=== PATIENT | male | born 1970 | race African-American/Black ===

== ENCOUNTER 2021-02-11 07:23 | Day surgery (SDC) | payer OTHER ==
[2021-02-11] MEDS ORDERED: propofoL 50 ML ONE (07:26)
[2021-02-11] MEDS ORDERED: fentaNYL 100 MCG/2 ML SDV ONE (07:31)
--- NOTE | 2021-02-11 08:06 | PCM.PREANE ---
Preanesthetic Assessment - Anesthesia/Transfusion/Family Hx Anesthesia History: No Prior Anesthesia Family History of Anesthesia Reaction: No Transfusion History: No Prior Transfusion(s) - Review of Systems General: No Symptoms Pulmonary: No Symptoms Cardiovascular: No Symptoms Gastrointestinal: No Symptoms Neurological: No Symptoms Other: Reports: None - Physical Assessment NPO Status Date: 02/11/21 NPO Status Time: 00:00 Vital Signs: Last Vital Signs Temp 97.3 F 02/11/21 07:21 Pulse 69 02/11/21 07:21 Resp 15 02/11/21 07:21 BP 157/96 H 02/11/21 07:21 Pulse Ox 98 02/11/21 07:21 Height: 5 ft 9 in Weight: 215 lb ASA Class: 2 Mental Status: Alert & Oriented x3 Airway Class: Mallampati = 2 Dentition: Reports: Normal Dentition Thyro-Mental Finger Breadths: 3 Mouth Opening Finger Breadths: 3 ROM/Head Extension: Full Lungs: Clear to Auscultation, Normal Respiratory Effort Cardiovascular: Regular Rate, Regular Rhythm - Allergies Allergies/Adverse Reactions: Allergies Allergy/AdvReac Type Severity Reaction Status Date / Time No Known Allergies Allergy Verified 02/08/21 08:28 - Acknowledgements Anesthesia Type Planned: General Anesthesia Pt an Appropriate Candidate for the Planned Anesthesia: Yes Alternatives and Risks of Anesthesia Discussed w Pt/Guardian: Yes Pt/Guardian Understands and Agrees with Anesthesia Plan: Yes PreAnesthesia Questionnaire - Past Health History Medical/Surgical History: Denies Medical/Surgical History Cardiovascular History: Reports: Hypertension Genitourinary History: Reports: Renal Calculus Musculoskeletal History: Reports: Fracture Other Musculoskeletal History: hx fx wrist Endocrine/Metabolic History: Reports: Obesity/BMI 30+ - Infectious Disease History Infectious Disease History: Reports: SARS Other Infectious Disease History: covid positive in December 28, 2020 - Past Surgical History Head Surgeries/Procedures: Reports: None - SUBSTANCE USE Tobacco Use Status *Q: Never Tobacco User - HOME MEDS Home Medications: Home Meds Lisinopril/Hydrochlorothiazide [Lisinopril-Hctz 20-12.5 mg Tab] 1 tab PO BID 02/08/21 [History] Tadalafil [Cialis] 20 mg PO ASDIRECTED PRN 02/08/21 [History] Terazosin HCl [Terazosin] 5 mg PO BEDTIME 02/08/21 [History] - CURRENT (IN HOUSE) MEDS Current Meds: Current Medications Lactated Ringer's (Ringers, Lactated) 1,000 mls @ 125 mls/hr IV ASDIRECTED ASHLEY Discontinued Medications Fentanyl (Fentanyl 100 Mcg/2 Ml Sdv) Confirm Administered Dose 100 mcg .ROUTE .STK-MED ONE Stop: 02/11/21 07:32 Propofol (Diprivan 50 Ml) Confirm Administered Dose 50 mls @ as directed .ROUTE .STK-MED ONE Stop: 02/11/21 07:27 Lidocaine HCl (Lidocaine 1% 5 Ml Sdv) Confirm Administered Dose 5 ml .ROUTE .STK-MED ONE Stop: 02/11/21 07:32
--- NOTE | 2021-02-11 09:15 | PCM.OPNOTE ---
- General Post-Op/Procedure Note Date of Surgery/Procedure: 02/11/21 Operative Procedure(s): Colonoscopy Findings: Normal colon dictation number [id number] Pre Op Diagnosis: Screening Post-Op Diagnosis: Normal colonoscopy Anesthesia Technique: GIANNI Primary Surgeon: Sal Mohr Pathology: none Complications: None Condition: Good
--- NOTE | 2021-02-11 09:34 | PCM48HPAN ---
Post Anesthesia Note - EVALUATION WITHIN 48HRS OF ANESTHETIC Vital Signs in Normal Range: Yes Patient Participated in Evaluation: Yes Respiratory Function Stable: Yes Airway Patent: Yes Cardiovascular Function Stable: Yes Hydration Status Stable: Yes Pain Control Satisfactory: Yes Nausea and Vomiting Control Satisfactory: Yes Mental Status Recovered: Yes Vital Signs: Last Vital Signs Temp 97.2 F 02/11/21 09:15 Pulse 65 02/11/21 09:30 Resp 12 02/11/21 09:30 BP 117/81 02/11/21 09:30 Pulse Ox 96 02/11/21 09:30
--- NOTE | 2021-02-11 09:34 | PCM.POSTAN ---
POST ANESTHESIA ASSESSMENT - MENTAL STATUS Mental Status: Alert, Oriented - VITAL SIGNS Vital Signs: Last Vital Signs Temp 97.2 F 02/11/21 09:15 Pulse 65 02/11/21 09:30 Resp 12 02/11/21 09:30 BP 117/81 02/11/21 09:30 Pulse Ox 96 02/11/21 09:30 - RESPIRATORY Respiratory Status: Respiratory Rate WNL, Airway Patent, O2 Saturation Stable - CARDIOVASCULAR CV Status: Pulse Rate WNL, Blood Pressure Stable - GASTROINTESTINAL GI Status: No Symptoms - POST OP HYDRATION Hydration Status: Adequate & Stable
[2021-02-11] MEDS ORDERED: Lactated Ringers 1,000 ML IV SCH (10:45)
--- NOTE | 2021-02-11 14:18 | OR ---
SURGEON: ELIAZAR RUDOLPH MD DATE OF PROCEDURE: 02/11/2021 PREOPERATIVE DIAGNOSIS: Screening colonoscopy. POSTOPERATIVE DIAGNOSIS: Normal colonoscopy. PROCEDURE PERFORMED: Colonoscopy. PRIMARY SURGEON: Eliazar Rudolph MD ANESTHESIA: With Anesthesiology. EXTENT OF THE COLONOSCOPY: To the cecum. BOWEL PREP: Very good. LIMITATIONS: None. REASON FOR PROCEDURE: Patient is a pleasant 51-year-old gentleman. He has never had a colonoscopy before. He denies any blood in the stool. Denies any family history of colon cancer. The patient says he did have COVID a couple months ago and ever since then he has had off and on loose stools. He says this seems to be improving. PROCEDURE IN DETAIL: Physical examination was performed. The major risks and benefits associated with the procedure were explained to the patient in detail. The patient verbalized understanding and agreement with the same. The patient was then connected to appropriate monitoring device and IV started. EKG, pulse, pulse oximetry, blood pressure, and capnography were monitored throughout the entire procedure. Continuous oxygen and sedation were provided by the anesthesiologist. The patient was placed in left lateral decubitus position. Sedation was began. After adequate sedation was achieved, a digital rectal exam was performed. No rectal masses or polyps were felt. Now, a well-lubricated Olympus colonoscope was inserted into the rectum and advanced under direct visualization to the level of the cecum. The cecum was identified by both visual and anatomic landmarks. Photographs were taken of the cecal cap. The terminal ileum was also intubated. The scope was then slowly withdrawn in somewhat circular fashion looking at the color, texture, anatomy, and integrity of mucosa from the cecum to the anal canal. The patient did have a little bit of light liquid stool which was suctioned and irrigated out for a good look at the mucosa. No polyps or lesions were seen. The scope was retroflexed in the rectum. He did have a little bit of hyperplastic papillae of the hemorrhoids. The scope was then completely removed and the procedure was terminated. ENDOSCOPIC DIAGNOSIS: Normal colonoscopy. RECOMMENDATIONS: Followup colonoscopy in 10 years, sooner if he develops signs and symptoms such as change in bowel habits or blood in the stool. JACKIE / DANIE /[id number]
== END 2021-02-11 10:00 | disposition home or self-care (01) ==
LOC: MW.SDS 07:23
PROVIDERS: ATTEND Surgery
DX: Z12.11 Encounter for screening for malignant neoplasm of colon (principal); E66.9 Obesity, unspecified; Z79.899 Other long term (current) drug therapy; Z68.31 Body mass index [BMI] 31.0-31.9, adult
CPT/HCPCS: 45378; J2704; J3010; J7120; 00812

== ENCOUNTER 2021-02-19 15:36 | Emergency (ER) | payer OTHER ==
--- NOTE | 2021-02-19 16:18 | EDM.PDOC ---
ED HPI GENERAL MEDICAL PROBLEM - General Chief Complaint: Lower Extremity Injury/Pain Stated Complaint: RIGHT FOOT SWOLLEN Time Seen by Provider: 02/19/21 15:43 Source of Information: Reports: Patient History Limitations: Reports: No Limitations - History of Present Illness INITIAL COMMENTS - FREE TEXT/NARRATIVE: HISTORY AND PHYSICAL: History of present illness: Patient is a 51-year-old male with a history of hypertension who presents to the emergency department for complaints of right foot pain and swelling that started last Sunday. The patient states that he has no injury and that he has good fitting shoes. The patient states that he has not done any stressful walking or climbing. The patient has never had this happen before. The patient has just been taking [id number] Motrin or Tylenol. Patient denies any fever, chills, headache, change in vision, syncope or near syncope. Denies any chest pain, back pain, shortness of breath or cough. Denies any abdominal pain, nausea, vomiting, diarrhea, constipation or dysuria. Has not noted any blood in urine or stool. Patient has been eating and drinking appropriately. Review of systems: As per history of present illness and below otherwise all systems reviewed and negative. Past medical history: As per history of present illness and as reviewed below otherwise noncontributory. Surgical history: As per history of present illness and as reviewed below otherwise noncontributory. Social history: See social history for further information Family history: As per history of present illness and as reviewed below otherwise noncontributory. Physical exam: General: Well developed and well nourished. Alert and orientated x 3. Nontoxic in appearance and in no acute distress. Vital signs are stable and have been reviewed by me. Nursing notes were reviewed. HEENT: Atraumatic, normocephalic, pupils equal and reactive bilaterally, negative for conjunctival pallor or scleral icterus, mucous membranes moist, TMs normal bilaterally, throat clear, neck supple, nontender, trachea midline. No drooling or trismus noted. No meningeal signs. No hot potato voice noted. Lungs: Clear to auscultation bilaterally. No wheezes, rales, or rhonchi. Chest nontender. Normal work of breathing, no accessory muscles used. Heart: S1S2, regular rate and rhythm without overt murmur, gallops, or rubs. No JVD. No peripheral edema Abdomen: Soft, nondistended, nontender. Normoactive bowel sounds. Negative for masses or costovertebral tenderness. Skin: Intact, warm, dry. No lesions or rashes noted. Hematologic: No petechiae or purpra. Mucosa appropriate color and normal nail bed color and refill. Extremities: MTP joint swollen and tender to palpation. Moves all other extremities per self without difficulty or deficits, negative for cords or calf pain. Neurovascular unremarkable. Neuro: Awake, alert, oriented. Cranial nerves II through XII unremarkable. Cerebellum unremarkable. Motor and sensory unremarkable throughout. Exam nonfocal. Psychiatric: Mood and affect are appropriate. Normal thought process. Answering questions appropriately. Notes: *This patient was seen and evaluated during the 2019 SARS-CoV-2 novel coronavirus pandemic period. Community viral transmission is ongoing at time of this encounter and the emergency department is operating under pandemic response procedures. As stated above the patient is a 51-year-old male who presents to the emergency room with complaints of swelling and pain of his right MTP joint that started on Sunday. The patient is on lisinopril and recently had his dose increased. This could be a side effect. I will obtain a foot x-ray. If the foot x-ray is normal I will treat the patient with prednisone and Tylenol. The patient is agreeable with this plan. Right foot x-ray IMPRESSION: Mild soft tissue swelling. No obvious bony abnormality. Ordered prednisone 40 and acetaminophen for the patient. I have prescribed prednisone 40 daily for 5 days. I have instructed the patient not to take any kind of NSAIDs while on prednisone as this could cause GI bleed. I also to the patient that he could take a Pepcid if the prednisone increases GI irritation. I advised the patient to follow-up with his primary care or governor assembler [facility]. I did discuss with the patient that the definitive diagnosis of gout is an aspiration of the joint. This is not done in the emergency department. Patient is agreeable with the discharge plan. I have talked with the patient about today's findings, in addition to providing specific details for plan of care. Reassessment at the time of disposition demonstrates that the patient is in no acute distress. The patient is stable for discharge, counseling was provided and we discussed in great detail signs and symptoms that would prompt them to return to the Emergency Department. Medication, follow up and supportive care measures were reviewed and discussed. Voices understanding and is agreeable to plan of care. Denies any further questions or concerns at this time. Diagnostics: Right foot x-ray Therapeutics: Prednisone 40 mg acetaminophen 650 mg Prescription: Prednisone 40 mg p.o. for 5 days Impression: Gout Plan: 1. You were evaluated today on an emergent basis. Your complaints of right foot pain was evaluated and found to be gout. Your x-ray just showed mild soft tissue swelling. No obvious bony abnormality. This could be a side effect from your lisinopril. I have started you on prednisone 40 mg. He will take this daily for 5 days. Do not take any Advil or NSAIDs with this as it could cause GI bleeding. If you do have any GI upset you can take a Pepcid [id number]. You need to follow-up with the governor assembler hydraulic or your primary care provider for definitive care of this. As we talked about aspiration of the joint to be sent out is the only definitive diagnosis for gout. But I will treat you clinically for gout. 2. You can alternate Tylenol and ibuprofen as needed for pain and fever manag ement. 3. We encourage you to follow up with your primary care provider and/or recommended specialist in the next few days for re-evaluation and further care/management. 4. If your symptoms should worsen, new symptoms develop or any of the signs and symptoms we discussed should arise please return to the emergency room or call 911 (if needed). Definitive disposition and diagnosis as appropriate pending reevaluation and review of above. Right Feet Pain Score (Numeric/FACES): 9 - Related Data Allergies Allergy/AdvReac Type Severity Reaction Status Date / Time No Known Allergies Allergy Verified 02/19/21 16:01 Home Meds: Home Meds Lisinopril/Hydrochlorothiazide [Lisinopril-Hctz 20-12.5 mg Tab] 1 tab PO BID 02/08/21 [History] Tadalafil [Cialis] 20 mg PO ASDIRECTED PRN 02/08/21 [History] Terazosin HCl [Terazosin] 5 mg PO BEDTIME 02/08/21 [History] predniSONE [Prednisone] 40 mg PO DAILY 5 Days #10 tablet 02/19/21 [Rx] Indomethacin 50 mg PO TID 5 Days #15 capsule 02/23/21 [Rx] cephALEXin [Keflex] 500 mg PO Q8H 10 Days #30 cap 02/23/21 [Rx] Past Medical History - Past Health History Medical/Surgical History: Denies Medical/Surgical History Cardiovascular History: Reports: Hypertension Genitourinary History: Reports: Renal Calculus Musculoskeletal History: Reports: Fracture Other Musculoskeletal History: hx fx wrist Endocrine/Metabolic History: Reports: Obesity/BMI 30+ - Infectious Disease History Infectious Disease History: Reports: SARS Other Infectious Disease History: covid positive in December 28, 2020 - Past Surgical History Head Surgeries/Procedures: Reports: None Social & Family History - Tobacco Use Second Hand Smoke Exposure: No - Caffeine Use Caffeine Use: Reports: None - Recreational Drug Use Recreational Drug Use: No Review of Systems - Review of Systems Review Of Systems: Comprehensive ROS is negative, except as noted in HPI. ED EXAM, GENERAL - Physical Exam Exam: See Below (See dictation) Course - Vital Signs Last Recorded V/S: Last Vital Signs Temp 97.3 F 02/19/21 15:58 Pulse 89 02/19/21 15:58 Resp 20 02/19/21 15:58 BP 143/85 H 02/19/21 15:58 Pulse Ox 98 02/19/21 15:58 - Orders/Labs/Meds Meds: Medications Discontinued Medications Generic Name Dose Route Start Last Admin Trade Name Ines PRN Reason Stop Dose Admin Acetaminophen 650 mg 02/19/21 16:48 02/19/21 16:55 Acetaminophen 325 Mg Tab PO 02/19/21 16:49 650 mg NOW ONE Administration Prednisone 40 mg 02/19/21 16:47 02/19/21 16:55 Prednisone 20 Mg Tab PO 02/19/21 16:48 40 mg ONETIME ONE Administration Departure - Departure Time of Disposition: 17:01 Disposition: Home, Self-Care 01 Condition: Good Clinical Impression: Gout Qualifiers: Gout site: foot Gout etiology: unspecified cause Chronicity: acute Laterality: right Qualified Code(s): M10.9 - Gout, unspecified - Discharge Information *PRESCRIPTION DRUG MONITORING PROGRAM REVIEWED*: Not Applicable *COPY OF PRESCRIPTION DRUG MONITORING REPORT IN PATIENT CINTHIA: Not Applicable Prescriptions: predniSONE [Prednisone] 40 mg PO DAILY 5 Days #10 tablet Instructions: Gout Referrals: PCP,None [Primary Care Provider] - Forms: ED Department Discharge Additional Instructions: The following information is given to patients seen in the emergency department who are being discharged to home. This information is to outline your options for follow-up care. We provide all patients seen in our emergency department with a follow-up referral. The need for follow-up, as well as the timing and circumstances, are variable depending upon the specifics of your emergency department visit. If you don't have a primary care physician on staff, we will provide you with a referral. We always advise you to contact your personal physician following an emergency department visit to inform them of the circumstance of the visit and for follow-up with them and/or the need for any referrals to a consulting specialist. The emergency department will also refer you to a specialist when appropriate. This referral assures that you have the opportunity for follow-up care with a specialist. All of these measure are taken in an effort to provide you with optimal care, which includes your follow-up. Under all circumstances we always encourage you to contact your private physician who remains a resource for coordinating your care. When calling for follow-up care, please make the office aware that this follow-up is from your recent emergency room visit. If for any reason you are refused follow-up, please contact the [facility] Emergency Department at and asked to speak to the emergency department charge nurse. [facility] [address] [place] [address] [place] [address] Plan: 1. You were evaluated today on an emergent basis. Your complaints of right foot pain was evaluated and found to be gout. Your x-ray just showed mild soft tissue swelling. No obvious bony abnormality. This could be a side effect from your lisinopril. I have started you on prednisone 40 mg. He will take this daily for 5 days. Do not take any Advil or NSAIDs with this as it could cause GI bleeding. If you do have any GI upset you can take a Pepcid [id number]. You need to follow-up with the governor assembler hydraulic or your primary care provider for definitive care of this. As we talked about aspiration of the joint to be sent out is the only definitive diagnosis for gout. But I will treat you clinically for gout. 2. You can alternate Tylenol and ibuprofen as needed for pain and fever management. 3. We encourage you to follow up with your primary care provider and/or recommended specialist in the next few days for re-evaluation and further care/management. Sepsis Event Note (ED) - Evaluation Sepsis Screening Result: No Definite Risk
[2021-02-19] MEDS ORDERED: predniSONE 20 MG Tab PO ONE (16:47)
[2021-02-19] MEDS ORDERED: Acetaminophen 325 MG Tab PO ONE (16:48)
--- NOTE | 2021-02-19 16:59 | CR ---
INDICATION: Right foot swelling. No trauma. TECHNIQUE: Two views of the right foot. COMPARISON: None. FINDINGS: Mild generalized soft tissue swelling. No fracture, periosteal reaction, joint space narrowing or erosive change. IMPRESSION: Mild soft tissue swelling. No obvious bony abnormality. Dictated by Uriel Campos MD @ 02/19/2021 4:58:22 PM (Electronically Signed)
== END 2021-02-19 17:19 | disposition home or self-care (01) ==
LOC: MW.ED 15:36
DX: M10.9 Gout, unspecified (principal); I10 Essential (primary) hypertension; E66.9 Obesity, unspecified; Z68.31 Body mass index [BMI] 31.0-31.9, adult; Z79.899 Other long term (current) drug therapy
CPT/HCPCS: 73620; 99283; A9270

== ENCOUNTER 2021-02-23 13:55 | Emergency (ER) | payer OTHER ==
--- NOTE | 2021-02-23 16:13 | EDM.PDOC ---
ED HPI GENERAL MEDICAL PROBLEM - General Chief Complaint: Lower Extremity Injury/Pain Stated Complaint: POSSIBLE BLOOD CLOT IN RT FOOT Time Seen by Provider: 02/23/21 15:56 Source of Information: Reports: Patient History Limitations: Reports: No Limitations - History of Present Illness INITIAL COMMENTS - FREE TEXT/NARRATIVE: HISTORY AND PHYSICAL: History of present illness: Patient is a 51-year-old male who presents emergency room today with concern of right toe swelling/possible gout that has not improved with prednisone. Patient states that on , he began having right sided toe swelling/pain/redness. Patient states that he was told that his probable gout and was sent home with prednisone. Patient states that he has been taking this since without improvement of his symptoms. Patient denies any trauma or injury to the affected toe. Patient states that he followed up with his primary care provider at the [facility] and had uric acid testing which was normal according to patient. Patient states that he has had this happen 1 other time to his toe but states that it went away without intervention. Patient was seen and evaluated in the emergency room on 02/19/2021. Patient denies fever, chills, chest pain, shortness of breath, or cough. Denies headache, neck stiff ness, change in vision, syncope, or near syncope. Denies nausea, vomiting, abdominal pain, diarrhea, constipation, or dysuria. Has not noted any blood in urine or stool. Patient has been eating and drinking appropriately. Review of systems: As per history of present illness and below otherwise all systems reviewed and negative. Past medical history: As per history of present illness and as reviewed below otherwise noncontributory. Surgical history: As per history of present illness and as reviewed below otherwise noncontributory. Social history: See social history for further information Family history: As per history of present illness and as reviewed below otherwise noncontributory. Physical exam: General: Patient is alert, oriented, and in no acute distress. Patient sitting comfortably on exam table. Vitals stable and reviewed by me. HEENT: Atraumatic, normocephalic, pupils equal and reactive bilaterally, negative for conjunctival pallor or scleral icterus, mucous membranes moist, neck supple, nontender, trachea midline. No drooling or trismus noted. No m eningeal signs. No hot potato voice noted. Lungs: Clear to auscultation, breath sounds equal bilaterally, chest nontender. Heart: S1S2, regular rate and rhythm without overt murmur Abdomen: Soft, nondistended, nontender. Negative for masses or hepatosplenomegaly. Negative for costovertebral tenderness. Pelvis: Stable nontender. Genitourinary: Deferred. Rectal: Deferred. Skin: Intact, warm, dry. No lesions or rashes noted. Extremities: Patient does have mild to moderate edema/erythema overlying the right first digit MTP and PIP joint with significant pain with range of motion of these joints. Patient does have full range of motion of complete bilateral lower extremities without deficit. No felon or paronychia noted of the affected toe. Dorsalis pedis and posterior tibial pulses are grossly intact with capillary refill less than 2 seconds. All compartments soft of the right lower extremity. Otherwise, atraumatic, negative for cords or calf pain. Neurovascular unremarkable. Neuro: Awake, alert, oriented. Cranial nerves II through XII unremarkable. Cerebellum unremarkable. Motor and sensory unremarkable throughout. Exam nonfocal. Notes: On chart review from 02/19/2021, patient did have imaging of his right foot which showed mild soft tissue swelling with no obvious bony abnormality. Patient was discharged home with prednisone 40 mg and Tylenol for pain for 5 days. Despite taking this, patient continues to have no improvement of his symptoms today. Upon arrival to the ED, patient is vitally stable and well-appearing on exam. Patient does have MTP joint edema/erythema and PIP joint swelling of the right foot first digit that is tender and otherwise neurovascularly intact. This does resemble clinical gout. However, cannot rule out cellulitis. At this time, will obtain lab work, do not need to repeat x-ray as this has already been obtained and negative, and will reassess patient. Mild derangements of CBC and CMP unremarkable with white blood cell count within normal limits. Upon reevaluation of patient, he remains vitally stable and comfortable throughout stay in ED. Since patient is not having any benefit from prednisone, discuss stopping this medication and starting indomethacin for presumed gout. Given that and not completely presumed gout versus cellulitis, will also prescribe Keflex at this time with referral to podiatry for further follow-up and evaluation. Strict return precautions thoroughly discussed with patient. Discussed importance for follow-up with underwriting consultant and his primary care provider. Voices understanding and is agreeable to plan of care. Denies any further questions or concerns at this time. Diagnostics: CBC, CMP Therapeutics: None Prescription: Indomethacin, Keflex Impression: Right toe edema, possible gout vs cellulitis Plan: 1. Take medication as prescribed. Do not take any additional NSAID medication with indomethacin such as ibuprofen, naproxen, Aleve, or aspirin as discussed. You can also take Tylenol as directed for pain and discomfort. Stop Prednisone as discussed. 2. Follow-up with a underwriting consultant and your primary care provider as discussed. The number has been provided above for you to call and establish an appointment time. 3. Return to the ED as needed and as discussed. Definitive disposition and diagnosis as appropriate pending reevaluation and review of above. Right Foot Pain Score (Numeric/FACES): 10 - Related Data Allergies Allergy/AdvReac Type Severity Reaction Status Date / Time No Known Allergies Allergy Verified 02/19/21 16:01 Home Meds: Home Meds Lisinopril/Hydrochlorothiazide [Lisinopril-Hctz 20-12.5 mg Tab] 1 tab PO BID 02/08/21 [History] Tadalafil [Cialis] 20 mg PO ASDIRECTED PRN 02/08/21 [History] Terazosin HCl [Terazosin] 5 mg PO BEDTIME 02/08/21 [History] predniSONE [Prednisone] 40 mg PO DAILY 5 Days #10 tablet 02/19/21 [Rx] Indomethacin 50 mg PO TID 5 Days #15 capsule 02/23/21 [Rx] cephALEXin [Keflex] 500 mg PO Q8H 10 Days #30 cap 02/23/21 [Rx] Past Medical History - Past Health History Medical/Surgical History: Denies Medical/Surgical History HEENT History: Reports: None Cardiovascular History: Reports: None, Hypertension Respiratory History: Reports: None Gastrointestinal History: Reports: None Genitourinary History: Reports: None, Renal Calculus Musculoskeletal History: Reports: Fracture Other Musculoskeletal History: hx fx wrist Neurological History: Reports: None Psychiatric History: Reports: None Endocrine/Metabolic History: Reports: None, Obesity/BMI 30+ Hematologic History: Reports: None Immunologic History: Reports: None Oncologic (Cancer) History: Reports: None - Infectious Disease History Infectious Disease History: Reports: SARS Other Infectious Disease History: covid positive in December 28, 2020 - Past Surgical History Head Surgeries/Procedures: Reports: None HEENT Surgical History: Reports: None Cardiovascular Surgical History: Reports: None Male Surgical History: Reports: None Endocrine Surgical History: Reports: None Neurological Surgical History: Reports: None Dermatological Surgical History: Reports: None Social & Family History - Family History Family Medical History: No Pertinent Family History - Tobacco Use Tobacco Use Status *Q: Never Tobacco User Second Hand Smoke Exposure: No - Caffeine Use Caffeine Use: Reports: None - Recreational Drug Use Recreational Drug Use: No Review of Systems - Review of Systems Review Of Systems: Comprehensive ROS is negative, except as noted in HPI. ED EXAM, GENERAL - Physical Exam Exam: See Below (See dictation) Course - Vital Signs Last Recorded V/S: Last Vital Signs Temp 96 F L 02/23/21 15:41 Pulse 61 02/23/21 15:41 Resp 15 02/23/21 15:41 BP 132/81 02/23/21 15:41 Pulse Ox 99 02/23/21 15:41 - Orders/Labs/Meds Labs: Laboratory Tests 02/23/21 02/23/21 Range/Units 16:20 16:20 WBC 8.84 (4.0-11.0) K/uL RBC 4.85 (4.50-5.90) M/uL Hgb 12.7 L (13.0-17.0) g/dL Hct 38.3 (38.0-50.0) % MCV 79.0 L (80.0-98.0) fL MCH 26.2 L (27.0-32.0) pg MCHC 33.2 (31.0-37.0) g/dL RDW Std Deviation 45.9 (28.0-62.0) fl RDW Coeff of Olga 16 H (11.0-15.0) % Plt Count 373 (150-400) K/uL MPV 8.80 (7.40-12.00) fL Neut % (Auto) 56.6 (48.0-80.0) % Lymph % (Auto) 34.7 (16.0-40.0) % Gregory % (Auto) 6.7 (0.0-15.0) % Eos % (Auto) 1.9 (0.0-7.0) % Baso % (Auto) 0.1 (0.0-1.5) % Neut # (Auto) 5.0 (1.4-5.7) K/uL Lymph # (Auto) 3.1 H (0.6-2.4) K/uL Gregory # (Auto) 0.6 (0.0-0.8) K/uL Eos # (Auto) 0.2 (0.0-0.7) K/uL Baso # (Auto) 0.0 (0.0-0.1) K/uL Nucleated RBC % 0.0 /100WBC Nucleated RBCs # 0 K/uL Sodium 140 (136-148) mmol/L Potassium 4.3 (3.5-5.1) mmol/L Chloride 101 (98-107) mmol/L Carbon Dioxide 32.6 H (21.0-32.0) mmol/L BUN 13 (7.0-18.0) mg/dL Creatinine 1.1 (0.8-1.3) mg/dL Est Cr Clr Drug Dosing 80.34 mL/min Estimated GFR (MDRD) > 60.0 ml/min Glucose 101 (74-106) mg/dL Calcium 8.7 (8.5-10.1) mg/dL Total Bilirubin 0.4 (0.2-1.0) mg/dL AST 12 L (15-37) IU/L ALT 18 (14-63) IU/L Alkaline Phosphatase 46 (46-116) U/L Total Protein 7.2 (6.4-8.2) g/dL Albumin 3.2 L (3.4-5.0) g/dL Globulin 4.0 (2.6-4.0) g/dL Albumin/Globulin Ratio 0.8 L (0.9-1.6) Departure - Departure Time of Disposition: 17:14 Disposition: Home, Self-Care 01 Clinical Impression: Edema of toe - Discharge Information Prescriptions: Indomethacin 50 mg PO TID 5 Days #15 capsule cephALEXin [Keflex] 500 mg PO Q8H 10 Days #30 cap Instructions: Edema, [id number] Referrals: Higinio Perez [employer] [Primary Care Provider] - Forms: ED Department Discharge Additional Instructions: The following information is given to patients seen in the emergency department who are being discharged to home. This information is to outline your options for follow-up care. We provide all patients seen in our emergency department with a follow-up referral. The need for follow-up, as well as the timing and circumstances, are variable depending upon the specifics of your emergency department visit. If you don't have a primary care physician on staff, we will provide you with a referral. We always advise you to contact your personal physician following an emergency department visit to inform them of the circumstance of the visit and for follow-up with them and/or the need for any referrals to a consulting specialist. The emergency department will also refer you to a specialist when appropriate. This referral assures that you have the opportunity for follow-up care with a specialist. All of these measure are taken in an effort to provide you with optimal care, which includes your follow-up. Under all circumstances we always encourage you to contact your private physician who remains a resource for coordinating your care. When calling for follow-up care, please make the office aware that this follow-up is from your recent emergency room visit. If for any reason you are refused follow-up, please contact the [facility] Emergency Department at and asked to speak to the emergency department charge nurse. [facility] [address] [place] [id number] [address] [facility], Dr. Dixon, Podiatry [address] [address] 1. Take medication as prescribed. Do not take any additional NSAID medication with indomethacin such as ibuprofen, naproxen, Aleve, or aspirin as discussed. You can also take Tylenol as directed for pain and discomfort. Stop Prednisone as discussed. 2. Follow-up with a underwriting consultant and your primary care provider as discussed. Th e number has been provided above for you to call and establish an appointment time. 3. Return to the ED as needed and as discussed. Sepsis Event Note (ED) - Evaluation Sepsis Screening Result: No Definite Risk - Focused Exam Vital Signs: Vital Signs Temp Pulse Resp BP Pulse Ox 02/23/21 15:41 96 F L 61 15 132/81 99
[2021-02-23 16:58] LABS: BLOOD UREA NITROGEN,BUN 13 mg/dL (7.0-18.0); CARBON DIOXIDE,CO2 32.6 mmol/L (21.0-32.0); CHLORIDE,CL 101 mmol/L (98-107); GLUCOSE RANDOM 101 mg/dL (74-106); POTASSIUM,K 4.3 mmol/L (3.5-5.1); SODIUM,NA 140 mmol/L (136-148)
== END 2021-02-23 17:26 | disposition home or self-care (01) ==
LOC: MW.ED 13:55
DX: R60.0 Localized edema (principal); I10 Essential (primary) hypertension; E66.9 Obesity, unspecified; Z68.32 Body mass index [BMI] 32.0-32.9, adult
CPT/HCPCS: 36415; 80053; 85025; 99284

== ENCOUNTER 2021-05-31 15:30 | Emergency (ER) | payer OTHER | END 2021-05-31 17:18 | disposition home or self-care (01) | LOC: MW.ED 15:30 | DX: M25.561 Pain in right knee (principal); M25.461 Effusion, right knee; I10 Essential (primary) hypertension; E66.9 Obesity, unspecified; Z68.32 Body mass index [BMI] 32.0-32.9, adult; Z79.899 Other long term (current) drug therapy | CPT/HCPCS: 93971-26-RT; 93971-RT; 99283-25 ==

== ENCOUNTER 2023-04-06 11:30 | Emergency (ER) | payer OTHER | END 2023-04-06 13:31 | disposition home or self-care (01) | LOC: MW.ED 11:30 | DX: M25.461 Effusion, right knee (principal); I10 Essential (primary) hypertension; E66.9 Obesity, unspecified; Z79.899 Other long term (current) drug therapy; Z68.34 Body mass index [BMI] 34.0-34.9, adult | CPT/HCPCS: 73562-26-RT; 73562-RT; 93971-26-RT; 93971-RT; 99283; 99284 ==